=== PATIENT | male | born 1965 | race Caucasian/White ===

== ENCOUNTER → 2022-02-02 | Outpatient (CLI) | payer OTHER ==
[~2022-02-02] MED LIST: BAYE1TAB5 PO; HYDR-3715 PO
== END ==
LOC: M EKG 08:26
PROVIDERS: ATTEND Surgery
DX: K42.9 Umbilical hernia without obstruction or gangrene (principal)

== ENCOUNTER 2022-02-05 13:42 | Day surgery (SDC) | payer OTHER ==
[~2022-02-05] VITALS: Ht 175.3 cm; Wt 110.6 kg
[~2022-02-05 13:42] MED LIST changes: -HYDR-3715 PO; +LR 1,000 ML IV SCH
[2022-02-05] MEDS ORDERED: LR 1,000 ML IV SCH ×2 (14:20→20:05)
[2022-02-05 14:41] LABS: HEMATOCRIT 47.6 % (42.0-52.0); HEMOGLOBIN 16.2 g/dl (13.5-17.5); MEAN CORPUSCULAR HEMOGLOBIN 31.2 pg (27.0-33.0); MEAN CORPUSCULAR VOLUME 91.5 fl (80.0-96.0); PLATELET COUNT, AUTOMATED 198 10^3/uL (150-450); WHITE BLOOD COUNT 5.9 10^3/uL (4.0-10.0)
[2022-02-05 14:57] LABS: BLOOD UREA NITROGEN 15 MG/DL (7-18); CARBON DIOXIDE LEVEL 28 MEQ/L (21-32); CHLORIDE LEVEL 109 MEQ/L (98-107); CREATININE FOR GFR 1.11 MG/DL (0.70-1.30); GLOMERULAR FILTRATION RATE > 60.0 (>56); GLUCOSE, FASTING 94 MG/DL (70-100); POTASSIUM SERUM 4.2 MEQ/L (3.5-5.1); SODIUM LEVEL 140 MEQ/L (136-145)
[2022-02-05] MEDS ORDERED: BUPIVACAINE HCL 0.25% 30ML VIAL As Ordered ONE (17:32)
[2022-02-05] MEDS ORDERED: HYDR-3715 PO (18:06)
[2022-02-05] MEDS ORDERED: propofoL 200 MG/20 ML VIAL As Ordered ONE (18:18)
[2022-02-05] MEDS ORDERED: ONDANSETRON 4MG/2ML VIAL As Ordered ONE (18:18)
[2022-02-05] MEDS ORDERED: ROCURONIUM BROMIDE 50 MG/5 ML VIAL As Ordered ONE (18:18)
[2022-02-05] MEDS ORDERED: MIDAZOLAM INJ 2MG/2ML VIAL (J2250 PER 1MG) As Ordered ONE (18:18)
[2022-02-05] MEDS ORDERED: SUGAMMADEX SODIUM 500 MG/5 ML VIAL (BRIDION) As Ordered ONE (18:18)
[2022-02-05] MEDS ORDERED: dexameTHASONE 4 MG/ML 1ML VIAL (J1100 PER 1MG) As Ordered ONE (18:18)
[2022-02-05] MEDS ORDERED: fentaNYL 250 MCG/5 ML INJECTION As Ordered ONE (18:18)
[2022-02-05] MEDS ORDERED: KETOROLAC 60MG 2ML VIAL As Ordered ONE (18:18)
[2022-02-05] MEDS ORDERED: LIDOCAINE 2% 100MG/5ML SDV (FOR ANES.) As Ordered ONE (18:18)
[2022-02-05] MEDS ORDERED: ACETAMINOPHEN 1000MG 100ML IV BTL (OFIRMEV) (J0131 PER 10MG) As Ordered ONE (18:28)
[2022-02-05] MEDS ORDERED: ONDANSETRON 4MG/2ML VIAL IV PRN (20:05)
[2022-02-05] MEDS ORDERED: oxyCODONE 5MG TAB PO PRN (20:05)
[2022-02-05] MEDS ORDERED: fentaNYL 100 MCG/2 ML INJECTION IV PRN (20:05)
[2022-02-05] MEDS ORDERED: MORPHINE 2 MG/ML 1ML VIAL IV PRN (20:05)
[2022-02-05 21:53] VITALS: BP 138/85
== END 2022-02-05 22:08 | disposition home or self-care (01) ==
LOC: M SDC 13:42
PROVIDERS: ATTEND Surgery
DX: K43.2 Incisional hernia without obstruction or gangrene (principal); E78.5 Hyperlipidemia, unspecified; J45.909 Unspecified asthma, uncomplicated; R00.2 Palpitations; K21.9 Gastro-esophageal reflux disease without esophagitis; Z79.899 Other long term (current) drug therapy
CPT/HCPCS: 36415; 49654; 80048; 85027; C1781; J0131; J1100; J1885; J2250; J2405; J3010; S2900

== ENCOUNTER 2022-09-03 10:41 | Day surgery (SDC) | payer OTHER ==
[~2022-09-03] VITALS: Ht 175.3 cm; Wt 114.7 kg
[~2022-09-03 10:41] MED LIST changes: +HYDR-3715 PO; -LR 1,000 ML IV SCH; +NS 1,000 ML IV ONE
[2022-09-03] MEDS ORDERED: propofoL 200 MG/20 ML VIAL As Ordered ONE (12:03)
[2022-09-03] MEDS ORDERED: propofoL 500 MG/50 ML VIAL As Ordered ONE (12:35)
[2022-09-03] MEDS ORDERED: LIDOCAINE 2% 100MG/5ML SDV (FOR ANES.) As Ordered ONE (12:35)
[2022-09-03] MEDS ORDERED: GLYCOPYRROLATE INJ 0.2 MG/ML 2 ML VIAL As Ordered ONE (12:35)
[2022-09-03 13:34] VITALS: BP 138/89
== END 2022-09-03 13:36 | disposition home or self-care (01) ==
LOC: M OPP 10:41
PROVIDERS: ATTEND Internal Medicine Gastroenterology
DX: Q43.8 Other specified congenital malformations of intestine (principal); K64.8 Other hemorrhoids; K44.9 Diaphragmatic hernia without obstruction or gangrene; K29.70 Gastritis, unspecified, without bleeding; B19.20 Unspecified viral hepatitis C without hepatic coma; Z79.899 Other long term (current) drug therapy